=== PATIENT | female | born 1975 | race African-American/Black ===

== ENCOUNTER 2017-03-23 17:56 | Emergency (ER) | payer MEDICAID ==
[~2017-03-23] VITALS: Ht 162.6 cm; Wt 79.4 kg
[~2017-03-23 17:56] MED LIST: ACETAMINOPHEN650 M4 ORAL; ASPIRIN81 M3 PO; HEPARIN2000 UNIT/ SQ; HYDREA500 MG ORAL; HYDROMORPH0.5 MG/0.5 IVP; NKM; ZOFRAN4 M1 IVP
[2017-03-23] MEDS ORDERED: Solu-MEDROL 125mg Inj IVP ONE (18:30)
[2017-03-23] MEDS: Ipratropium 0.02% Inh Soln 2.5ml UD HHN SCH ×3 (18:45→19:00)
[2017-03-23] MEDS: Albuterol ud Inhalation HHN SCH ×3 (18:45→19:00)
[2017-03-23 19:28] LABS: APPEARANCE,URINE CLEAR; BASOPHILS % (AUTO) 0.8 % (0.0-2.0); EOSINOPHILS % (AUTO) 1.6 % (0.0-3.0); KETONES,URINE NEGATIVE (NEGATIVE); LEUKOCYTE ESTERASE ,URINE 1+ (NEGATIVE); LYMPHOCYTES % (AUTO) 43.8 % (20.0-45.0); MEAN CORPUSCULAR HEMOGLOBIN 21.5 PG (27.0-31.0); MEAN CORPUSCULAR HGB CONC 29.2 G/DL (32.0-36.0); MEAN CORPUSCULAR VOLUME 74 FL (80-99); MEAN PLATELET VOLUME 8.2 FL (6.5-10.1); MONOCYTES % (AUTO) 9.4 % (1.0-10.0); NEUTROPHILS % (AUTO) 44.4 % (45.0-75.0); NITRITE,URINE POSITIVE (NEGATIVE); PH,URINE 7 (4.5-8.0); PLATELET COUNT 247 K/UL (150-450); PROTEIN,URINE NEGATIVE (NEGATIVE); RED BLOOD COUNT 4.72 M/UL (4.20-5.40); RED CELL DISTRIBUTION WIDTH 14.6 % (11.6-14.8); UROBILINOGEN,URINE 4 MG/DL (0.0-1.0); WHITE BLOOD COUNT 7.9 K/UL (4.8-10.8)
[2017-03-23 19:33] LABS: ICTOTEST NEGATIVE
[2017-03-23 19:41] LABS: ANION GAP 12 mmol/L (5-15); CALCIUM 10.8 MG/DL (8.5-10.1); CARBON DIOXIDE 23 MMOL/L (21-32); CHLORIDE 105 MMOL/L (98-107); CREATININE 0.8 MG/DL (0.55-1.30); GLOMERULAR FILTRATION RATE > 60 mL/min (>60); SODIUM 140 MMOL/L (136-145)
[2017-03-23 19:52] LABS: BACTERIA,URINE FEW /HPF; RBC,URINE 0-2 /HPF (0 - 2); SQUAMOUS EPITHELIAL CELL,UR FEW /LPF (NONE/OCC); WBC,URINE 0-2 /HPF (0 - 2)
[2017-03-23 19:53] LABS: TRICHOMONAS,URINE OCCASIONAL /HPF
[2017-03-23 19:56] LABS: ALANINE AMINOTRANSFERASE 35 U/L (12-78); ALBUMIN/GLOBULIN RATIO 0.9 (1.0-2.7); ASPARTATE AMINO TRANSFERASE 23 U/L (15-37); CKMB 1.1 NG/ML (0.0-3.6); TOTAL PROTEIN 8.5 G/DL (6.4-8.2)
[2017-03-23] MEDS ORDERED: PREDNISONE20 MG ORAL (20:33)
[2017-03-23] MEDS ORDERED: ALBUTEROL SULF8.5 GM INH (20:33)
[2017-03-23 20:38] VITALS: BP 109/65
--- NOTE | 2017-03-23 23:03 | Emergency Room Report ---
History of Present Illness General Chief Complaint: Dyspnea/Respdistress Source: Patient Present Illness HPI 42-year-old female presents to ED for evaluation. Patient states she feels short of breath starting this afternoon. Patient notes difficulty with deep breathing. Notes cough. Which is dry. Denies fevers or chills. Denies chest pain. Patient states she has history of leukemia and is currently being treated by her PMD. No other aggravating or leading factors. Denies any other associated symptoms Allergies: Coded Allergies: No Known Allergies (Unverified , 01/01/16) Patient History Past Medical History: other - leukemia Past Surgical History: none Pertinent Family History: none Social History: Denies: smoking, alcohol use, drug use Last Menstrual Period: 03/09/17 Now: No : 6 Para: 3 Immunizations: UTD Reviewed Nursing Documentation: PMH: Agreed, PSxH: Agreed Nursing Documentation-PMH Past Medical History: No History, Except For Hx Cardiac Problems: No - luekemia Hx Cancer: No Hx Gastrointestinal Problems: Yes Hx Neurological Problems: No Hx Neurologic Surgery: No Hx Brain Shunt: No Review of Systems All Other Systems: negative except mentioned in HPI Physical Exam Vital Signs Date Time Temp Pulse Resp B/P (MAP) Pulse Ox O2 Delivery O2 Flow Rate FiO2 03/23/17 18:06 98.2 78 26 123/65 100 Room Air Sp02 EP Interpretation: reviewed, normal General Appearance: no apparent distress, alert, GCS 15, non-toxic Head: normocephalic, atraumatic Eyes: bilateral eye normal inspection, bilateral eye PERRL ENT: hearing grossly normal, normal pharynx, no angioedema, normal voice Neck: full range of motion, supple/symm/no masses Respiratory: speaking full sentences, wheezing Cardiovascular #1: regular rate, rhythm, no edema Cardiovascular #2: 2+ carotid (R), 2+ carotid (L), 2+ radial (R), 2+ radial (L) , 2+ dorsalis pedis (R), 2+ dorsalis pedis (L) Gastrointestinal: normal bowel sounds, non tender, soft, non-distended, no guarding, no rebound Rectal: deferred Genitourinary: normal inspection, no CVA tenderness Musculoskeletal: back normal, gait/station normal, normal range of motion, non- tender Neurologic: alert, oriented x3, responsive, motor strength/tone normal, sensory intact, speech normal Psychiatric: judgement/insight normal, memory normal, mood/affect normal, no suicidal/homicidal ideation Reflexes: 3+ bicep (R), 3+ bicep (L), 3+ tricep (R), 3+ tricep (L), 3+ knee (R) , 3+ knee (L) Skin: normal color, no rash, warm/dry, well hydrated Lymphatic: no adenopathy Medical Decision Making Diagnostic Impression: Primary Impression: Bronchitis ER Course Hospital Course 42-year-old female presents to ED complaining of cough, SOB Differential diagnoses include: URI, bronchitis, asthma/COPD, pneumonia Clinical course Patient placed on stretcher. After initial history, physical exam reveals a female in no acute distress. Bilateral TM unremarkable. No pharyngeal erythema. No tonsillar exudates. No lymphadenopathy. diffuse wheezing bilaterally I ordered labs, IV fluids, EKG, chest x-ray, nebulizer treatments Labs reviewed- no leukocytosis noted, hemoglobin/hematocrit stable, electrolytes okay Chest x-ray shows no infiltrate EKG - NSR, no acute ischemic changes interpreted by me On reassessment patient states she feels better. Consistent with bronchitis Diagnosis - bronchitis Stable and discharged home with prescriptions for prednisone, albuterol. Instructed to followup with PMD. Return to ED if symptoms recur or worsen Labs Test 03/23/17 18:55 White Blood Count 7.9 K/UL (4.8-10.8) Red Blood Count 4.72 M/UL (4.20-5.40) Hemoglobin 10.1 G/DL (12.0-16.0) Hematocrit 34.7 % (37.0-47.0) Mean Corpuscular Volume 74 FL (80-99) Mean Corpuscular Hemoglobin 21.5 PG (27.0-31.0) Mean Corpuscular Hemoglobin Concent 29.2 G/DL (32.0-36.0) Red Cell Distribution Width 14.6 % (11.6-14.8) Platelet Count 247 K/UL (150-450) Mean Platelet Volume 8.2 FL (6.5-10.1) Neutrophils (%) (Auto) 44.4 % (45.0-75.0) Lymphocytes (%) (Auto) 43.8 % (20.0-45.0) Monocytes (%) (Auto) 9.4 % (1.0-10.0) Eosinophils (%) (Auto) 1.6 % (0.0-3.0) Basophils (%) (Auto) 0.8 % (0.0-2.0) Urine Color Lauren Urine Appearance Clear Urine pH 7 (4.5-8.0) Urine Specific Premont 1.015 (1.005-1.035) Urine Protein Negative (NEGATIVE) Urine Glucose (UA) Negative (NEGATIVE) Urine Ketones Negative (NEGATIVE) Urine Occult Blood 1+ (NEGATIVE) Urine Nitrite Positive (NEGATIVE) Urine Bilirubin Negative (NEGATIVE) Urine Ictotest Negative Urine Urobilinogen 4 MG/DL (0.0-1.0) Urine Leukocyte Esterase 1+ (NEGATIVE) Urine RBC 0-2 /HPF (0 - 2) Urine WBC 0-2 /HPF (0 - 2) Urine Squamous Epithelial Cells Few /LPF (NONE/OCC) Urine Bacteria Few /HPF (NONE) Urine Trichomonas Occasional /HPF (NONE) Sodium Level 140 MMOL/L (136-145) Potassium Level 4.0 MMOL/L (3.5-5.1) Chloride Level 105 MMOL/L (98-107) Carbon Dioxide Level 23 MMOL/L (21-32) Anion Gap 12 mmol/L (5-15) Blood Urea Nitrogen 9 mg/dL (7-18) Creatinine 0.8 MG/DL (0.55-1.30) Estimat Glomerular Filtration Rate > 60 mL/min (>60) Glucose Level 78 MG/DL (74-106) Lactic Acid Level 1.50 mmol/L (0.66-2.22) Calcium Level 10.8 MG/DL (8.5-10.1) Total Bilirubin 0.7 MG/DL (0.2-1.0) Aspartate Amino Transf (AST/SGOT) 23 U/L (15-37) Alanine Aminotransferase (ALT/SGPT) 35 U/L (12-78) Alkaline Phosphatase 60 U/L (46-116) Total Creatine Kinase 171 U/L (26-308) Creatine Kinase MB 1.1 NG/ML (0.0-3.6) Creatine Kinase MB Relative Index 0.6 Troponin I 0.023 ng/mL (0.000-0.056) Pro-B-Type Natriuretic Peptide 25 pg/mL (0-125) Total Protein 8.5 G/DL (6.4-8.2) Albumin 4.1 G/DL (3.4-5.0) Globulin 4.4 g/dL Albumin/Globulin Ratio 0.9 (1.0-2.7) EKG Diagnostic Results Rate: normal Rhythm: NSR ST Segments: no acute changes ASA given to the pt in ED: No Rhythm Strip Diag. Results EP Interpretation: yes Rhythm: NSR, no PVC's, no ectopy Chest X-Ray Diagnostic Results Chest X-Ray Diagnostic Results : Chest X-Ray Ordered: Yes # of Views/Limited/Complete: 1 View Indication: Shortness of Breath EP Interpretation: Yes Interpretation: no consolidation, no effusion, no pneumothorax, no acute cardiopulmonary disease Impression: No acute disease Electronically Signed by: Electronically signed by Dom Molina MD Last Vital Signs Date Time Temp Pulse Resp B/P (MAP) Pulse Ox O2 Delivery O2 Flow Rate FiO2 03/23/17 19:11 88 16 99 Room Air 03/23/17 18:06 98.2 123/65 Status: improved Disposition: HOME, SELF-CARE Condition: Stable Scripts Prednisone* (PREDNISONE*) 20 Mg Tablet 40 MG ORAL DAILY for 5 Days, TAB Prov: DOM MOLINA M.D. 03/23/17 Albuterol Sulfate* (ALBUTEROL SULFATE MDI*) 8.5 Gm Hfa.aer.ad 2 PUFF INH Q6H, #1 EA 0 Refills Prov: DOM MOLINA M.D. 03/23/17 Patient Instructions: Acute Bronchitis, [id number] DOM MOLIAN M.D. Mar 23, 2017 23:03
--- NOTE | 2017-03-24 10:27 | Diagnostic Imaging Report ---
Indication: SOB Technique: One view of the chest Comparison: none Findings: Lungs and pleural spaces are clear. Heart size is normal Impression: No acute process
--- NOTE | 2017-03-31 17:18 | Cardiology Report ---
APPROVED REPORT EKG Measurement Heart [id number] Normal sinus rhythm Normal ECG
== END 2017-03-23 20:38 | disposition home or self-care (01) ==
LOC: EMR 19:09
DX: J40 Bronchitis, not specified as acute or chronic (principal)
CPT/HCPCS: 36415; 71010; 80053; 81003; 82550; 82553; 83605; 83880; 84484; 85025; 87040; 93005; 94640; 94664; 96374; 99284; J2930

== ENCOUNTER 2018-12-23 23:19 | Emergency (ER) | payer BC, MEDICAID ==
[~2018-12-23] VITALS: Ht 162.6 cm; Wt 78.0 kg
[~2018-12-23 23:19] MED LIST changes: +ALBUTEROL SULF8.5 GM INH; +PREDNISONE20 MG ORAL
--- NOTE | 2018-12-23 23:34 | NUR ---
ED Nurse Note: Walk-in patient presents with complaints of bilateral hip pain with history of bone marrow transplant/donation. Patient is ambulatory with steady gait, A&Ox4, no s/s of acute distress.
[2018-12-23 23:36] VITALS: BP 139/88
--- NOTE | 2018-12-23 23:37 | NUR ---
ED Nurse Note: ERMD at bedside now.
--- NOTE | 2018-12-23 23:44 | Emergency Room Report ---
History of Present Illness General Chief Complaint: Pain Source: Patient Present Illness HPI 42-year-old female history of leukemia presents with bilateral hip pain x3 days , aggravated with movement alleviated with rest, pain is aching in nature mild severity, patient states that this happened in the past she was given medications and it resolved, no fevers no chills no chest pain no shortness of breath no abdominal pain patient presents for evaluation Allergies: Coded Allergies: No Known Allergies (Unverified , 01/01/16) Patient History Past Medical History: see triage record Last Menstrual Period: 12/2018 Now: No Reviewed Nursing Documentation: PMH: Agreed; PSxH: Agreed Nursing Documentation-PMH Hx Cardiac Problems: No - luekemia, anemia Hx Cancer: No Hx Gastrointestinal Problems: Yes Hx Neurological Problems: No Hx Neurologic Surgery: No Hx Brain Shunt: No Review of Systems All Other Systems: negative except mentioned in HPI Physical Exam Vital Signs Date Time Temp Pulse Resp B/P (MAP) Pulse Ox O2 Delivery O2 Flow Rate FiO2 12/23/18 23:24 98.8 89 17 139/88 (105) 98 Room Air Sp02 EP Interpretation: reviewed, normal General Appearance: well appearing, no apparent distress, alert Head: normocephalic, atraumatic Eyes: bilateral eye PERRL, bilateral eye EOMI ENT: uvula midline, moist mucus membranes Neck: supple, thyroid normal, supple/symm/no masses Respiratory: lungs clear, no respiratory distress, no retraction, no accessory muscle use Cardiovascular #1: normal peripheral pulses, regular rate, rhythm, no edema, no gallop, no murmur Gastrointestinal: non tender, soft, no guarding, no rebound Musculoskeletal: other - Patient is able to ambulate without any issues, range of motion of bilateral joints intact, 5-5 strength plantar dorsiflexion, out of 5 strength hip flexion extension, sensation grossly intact slight tenderness lateral aspect of bilateral hips Neurologic: alert, oriented x3 Psychiatric: mood/affect normal Skin: no rash, warm/dry Medical Decision Making Diagnostic Impression: Primary Impression: Neuropathy Additional Impression: Hip pain, bilateral ER Course 42 year-old female presents with bilateral hip pain, patient is able to ambulate , unremarkable neurovascular exam, low suspicion for fracture No acute imaging required, counseled patient will attempt to control pain here patient amenable to that Patient counseled, disposition home with return precautions Laboratory Tests Test 12/23/18 23:58 Urine HCG, Qualitative Negative (NEGATIVE) Urine Opiates Screen Negative (NEGATIVE) Urine Barbiturates Screen Negative (NEGATIVE) Phencyclidine (PCP) Screen Negative (NEGATIVE) Urine Amphetamines Screen Negative (NEGATIVE) Urine Benzodiazepines Screen Negative (NEGATIVE) Urine Cocaine Screen Negative (NEGATIVE) Urine Marijuana (THC) Screen Negative (NEGATIVE) Last Vital Signs Date Time Temp Pulse Resp B/P (MAP) Pulse Ox O2 Delivery O2 Flow Rate FiO2 12/23/18 23:36 98.8 79 17 139/88 98 Room Air Disposition: HOME, SELF-CARE Condition: Stable Scripts Methocarbamol* (ROBAXIN-750*) 750 Mg Tablet 750 MG PO QID, #28 TAB 0 Refills Prov: Chele Ravi MD 12/24/18 Naproxen* (NAPROSYN*) 250 Mg Tablet 250 MG ORAL TID PRN for For Pain, #20 TAB 0 Refills Prov: Chele Ravi MD 12/24/18 Referrals: [facility] Departure Forms: Return to Work Return to Work Date: Dec 26, 2018 Patient Instructions: Neuropathic Pain, Pain Without a Known Cause, Peripheral Neuropathy Additional Instructions: The patient was provided with discharge instructions, notified to follow-up with a primary care doctor and or specialist in the next 24-48 hours, and to return to the ED if they have worsening of their symptoms. Please note that this report is being documented using DRAGON technology. This can lead to erroneous entry secondary to incorrect interpretation by the dictating instrument. please follow-up with your PCP in regards for possible testing for peripheral neuropathy, testing for diabetes, and vitamin deficiencies please take a multivitamin every day. Chele Ravi MD Dec 23, 2018 23:44
[2018-12-23] MEDS ORDERED: oxyCODONE HCL/Acetaminophen 5/325mg ORAL ONE (23:45)
[2018-12-23] MEDS ORDERED: Ketorolac 60mg Inj IM ONE (23:45)
[2018-12-24] MEDS ORDERED: ROBAXIN-750750 MG PO (01:16)
[2018-12-24] MEDS ORDERED: NAPROXEN250 MG ORAL (01:16)
--- NOTE | 2018-12-24 01:23 | NUR ---
ED Nurse Note: Patient cleared for dischage, verbalized understanding of discharge instructions. ID band removed. Patient ambulatory with steady gait, A&Ox4, and has no s/s of acute distress.
[2018-12-24 01:24] VITALS: BP 139/88
== END 2018-12-24 01:25 | disposition home or self-care (01) ==
LOC: EMR 23:50
DX: G62.9 Polyneuropathy, unspecified (principal); M25.552 Pain in left hip; M25.551 Pain in right hip; Z85.6 Personal history of leukemia
CPT/HCPCS: 80307; 81025; 96372; 99284